=== PATIENT | female | born 1960 | race Caucasian/White ===

== ENCOUNTER 2018-01-06 23:04 | Observation (INO) ==
--- NOTE | 2018-01-06 23:55 | XR ---
EXAM DATE: 01/06/2018 11:45 PM EDT AGE/SEX: 57 years / Female INDICATIONS: . Shortness of breath, cough. CLINICAL DATA: This is the patient's initial encounter. Patient reports that signs and symptoms have been present for 2 days and indicates a pain score of 4/10. MEDICAL/SURGICAL HISTORY: None. None. COMPARISON: No prior exams available for comparison. FINDINGS: PA and lateral views of the chest demonstrate the lungs to be symmetrically hyper aerated without maria c dence of mass, infiltrate or effusion. The cardiomediastinal contours are unremarkable. Osseous struc tures are intact with a mild levoscoliosis of the mid dorsal spine. CONCLUSION: Hyperinflation with no acute cardiopulmonary process. Electronically signed by: Huber Chowdhury MD 01/06/2018 11:54 PM EDT
[2018-01-06 23:57] LABS: Baso # (Auto) 0.1 th/mm3 (0.0-0.2); Baso % (Auto) 0.8 % (0.0-2.0); Eos # (Auto) 0.2 th/mm3 (0.0-0.4); Eos % (Auto) 3.3 % (0.0-4.0); Hemoglobin 15.1 gm/dL (11.6-15.3); Lymph # (Auto) 1.3 th/mm3 (1.0-4.8); Lymph % (Auto) 20.6 % (9.0-44.0); Mean Corpuscular HGB Conc 34.3 % (32.0-36.0); Mean Corpuscular Hemoglobin 32.2 pg (27.0-34.0); Mean Corpuscular Volume 93.9 fL (80.0-100.0); Mean Platelet Volume 7.4 fL (7.0-11.0); Mono # (Auto) 0.6 th/mm3 (0.0-0.9); Mono % (Auto) 9.2 % (0.0-8.0); Neut # (Auto) 4.1 th/mm3 (1.8-7.7); Neut % (Auto) 66.1 % (16.0-70.0); Platelet Count 251 th/mm3 (150-450); Red Blood Count 4.69 mil/mm3 (4.00-5.30); Red Cell Distribution Width 13.9 % (11.6-17.2); White Blood Count 6.3 th/mm3 (4.0-11.0)
[2018-01-07 00:03] LABS: Chloride 104 meq/L (98-107); Potassium 4.3 meq/L (3.5-5.1); Sodium 137 meq/L (136-145)
[2018-01-07 00:06] LABS: Anion Gap 4 meq/L (5-15); Blood Urea Nitrogen 8 mg/dL (7-18); Calcium 8.8 mg/dL (8.5-10.1); Carbon Dioxide 28.8 meq/L (21.0-32.0); Glucose,Random 97 mg/dL (74-106)
[2018-01-07 00:09] LABS: Alanine Aminotransferase 31 U/L (10-53); Aspartate Aminotransferase 25 U/L (15-37)
[2018-01-07 00:10] LABS: Glomerular Filtration Rate Greater Than 89 mL/min (>89)
[2018-01-07 00:11] LABS: Total Protein 7.5 g/dL (6.4-8.2)
[2018-01-07 00:12] LABS: Alkaline Phosphatase 74 U/L (45-117)
[2018-01-07 00:17] LABS: Creatine Kinase 62 U/L (26-192)
[2018-01-07 00:56] LABS: Bilirubin,Urine Negative (Negative); Clarity,Urine Clear (Clear); Color,Urine Yellow (Yellw/Straw); Glucose,Urine (UA) Negative (Negative); Leukocyte Esterase,Urine Negative (Negative); Nitrite,Urine Negative (Negative); PH,Urine 5.5 (5.0-8.5); Urobilinogen,Urine 0.2 mg/dL (Less than 2)
[2018-01-07 01:05] LABS: Amphetamine Screen,Urine Neg (Neg); Barbiturate Screen,Urine Neg (Neg); Cannabinoid Screen,Urine Neg (Neg); Cocaine Screen,Urine Neg (Neg)
[2018-01-07 01:20] LABS: Opiate Screen,Urine Neg (Neg)
[2018-01-07 01:34] LABS: RBC,Urine 0-3 /hpf (0-3); Squamous Epithelial Cell,Urine 0-5 /hpf (0-5); WBC,Urine 0-5 /hpf (0-5)
[2018-01-07] MEDS ORDERED: Bisacodyl 10 MG Supp RECTAL PRN (02:04)
[2018-01-07] MEDS ORDERED: Temazepam 15 MG Capsule PO PRN (02:04)
[2018-01-07] MEDS ORDERED: Acetaminophen 325 MG Tablet PO PRN (02:04)
--- NOTE | 2018-01-07 02:35 | ED ---
HPI General Chief complaint: Respiratory Symptoms Stated complaint: cough/sob x2 days Time Seen by Provider: 01/06/18 23:14 History of Present Illness HPI narrative: 57-year-old female history of COPD here for evaluation of shortness of breath. Patient says she smokes about half a pack a day for 20+ years, started having shortness of breath and difficulty breathing, she can only walk half a block without getting short of breath. She denies any chest pain or sweating, she has no palpitations, no relation to physical activity. She does not use any inhalers at home, does not take any medications. Related Data Home Medications Medication Instructions Recorded Confirmed No Known Home Medications 01/06/18 01/06/18 Previous Rx's Medication Instructions Recorded azithromycin 500 mg PO DAILY #3 tab 01/09/18 ipratropium-albuterol 1 puff INHALATION QID #1 g 01/09/18 prednisone 20 mg PO BID #14 tab 01/09/18 Allergies Allergy/AdvReac Type Severity Reaction Status Date / Time No Known Allergies Allergy Unverified 01/06/18 23:32 Review of Systems Except as stated in HPI: all other systems reviewed are negative [facility] Medical History Medical History History of hysterectomy (Acute) Surgical History Surgical History H/O tubal ligation (Acute) History of appendectomy (Acute) Social History Social History Substance History: No History of Abuse Second Hand Smoke Exposure: No Smoking Status: Current every day smoker Tobacco Type: Cigarettes How Often Do You Have a Drink Containing Alcohol: Monthly or less Recent Travel in [facility] within the Last 8 Weeks: No Immunization History Tetanus Immunization: >5 Years Hx Influenza Vaccine This Season: No Exam Narrative Exam Narrative: GENERAL: Alert oriented 3 no acute distress. SKIN: Focused skin assessment warm/dry. HEAD: Atraumatic. Normocephalic. EYES: Pupils equal and round. No scleral icterus. No injection or drainage. ENT: No nasal bleeding or discharge. Mucous membranes pink and moist. NECK: Trachea midline. No JVD. CARDIOVASCULAR: Regular rate and rhythm. No murmur appreciated. RESPIRATORY: Mild expiratory wheezing bilaterally, no accessory muscle use. Breath sounds equal bilaterally. GASTROINTESTINAL: Abdomen soft, non-tender, nondistended. Hepatic and splenic margins not palpable. MUSCULOSKELETAL: No obvious deformities. No clubbing. No cyanosis. No edema. NEUROLOGICAL: Awake and alert. No obvious cranial nerve deficits. Motor grossly within normal limits. Normal speech. PSYCHIATRIC: Appropriate mood and affect; insight and judgment normal. Course Initial Documented Vital Signs Temperature 98.2 F 01/06/18 23:10 Pulse Rate 89 01/06/18 23:10 Respiratory Rate 22 01/06/18 23:10 Blood Pressure 203/86 H 01/06/18 23:10 Pulse Oximetry 92 L 01/06/18 23:10 Last Documented Vital Signs Temperature 97.6 F 01/09/18 12:00 Pulse Rate 66 01/09/18 14:19 Respiratory Rate 16 01/09/18 14:33 Blood Pressure 131/61 01/09/18 12:00 Pulse Oximetry 93 L 01/09/18 14:59 Medical Decision Making MDM Narrative Medical decision making narrative: 57-year-old female here for evaluation of shortness of breath. Patient is still hypoxic and will benefit from admission for COPD exacerbation with hypoxia. Lab Data Result diagrams: 01/08/18 05:29 01/08/18 05:29 Lab Results 01/06/18 01/06/18 01/06/18 Range/Units 23:40 23:40 23:40 CBC w Diff Auto diff final WBC 6.3 (4.0-11.0) th/mm3 RBC 4.69 (4.00-5.30) mil/mm3 Hgb 15.1 (11.6-15.3) gm/dL Hct 44.0 (35.0-46.0) % MCV 93.9 (80.0-100.0) fL MCH 32.2 (27.0-34.0) pg MCHC 34.3 (32.0-36.0) % RDW 13.9 (11.6-17.2) % Plt Count 251 (150-450) th/mm3 MPV 7.4 (7.0-11.0) fL Neut % (Auto) 66.1 (16.0-70.0) % Lymph % (Auto) 20.6 (9.0-44.0) % [place] % (Auto) 9.2 H (0.0-8.0) % Eos % (Auto) 3.3 (0.0-4.0) % Baso % (Auto) 0.8 (0.0-2.0) % Neut # (Auto) 4.1 (1.8-7.7) th/mm3 Lymph # (Auto) 1.3 (1.0-4.8) th/mm3 [place] # (Auto) 0.6 (0.0-0.9) th/mm3 Eos # (Auto) 0.2 (0.0-0.4) th/mm3 Baso # (Auto) 0.1 (0.0-0.2) th/mm3 WBC Differential . Differential Comment . D-Dimer Quant (PE/DVT) 0.39 (0.00-0.50) mg/L FEU Sodium 137 (136-145) meq/L Potassium 4.3 (3.5-5.1) meq/L Chloride 104 (98-107) meq/L Carbon Dioxide 28.8 (21.0-32.0) meq/L Anion Gap 4 L (5-15) meq/L BUN 8 (7-18) mg/dL Creatinine 0.58 (0.50-1.00) mg/dL Estimated GFR Greater than 89 (>89) mL/min Random Glucose 97 (74-106) mg/dL Calcium 8.8 (8.5-10.1) mg/dL Total Bilirubin 0.5 (0.2-1.0) mg/dL AST 25 (15-37) U/L ALT 31 (10-53) U/L Alkaline Phosphatase 74 (45-117) U/L Total Creatine Kinase 62 (26-192) U/L Troponin I Less than 0.02 L (0.02-0.05) ng/mL B-Natriuretic Peptide (0-100) pg/mL Total Protein 7.5 (6.4-8.2) g/dL Albumin 4.0 (3.4-5.0) g/dL Urine Color (Yellw/Straw) Urine Clarity (Clear) Urine pH (5.0-8.5) Ur Specific [place] (1.002-1.035) Urine Protein (Neg-Trace) mg/dL Urine Glucose (UA) (Negative) mg/dL Urine Ketones (Negative) mg/dL Urine Occult Blood (Negative) Urine Nitrate (Negative) Urine Bilirubin (Negative) Urine Urobilinogen (Less than 2) mg/dL Ur Leukocyte Esterase (Negative) Urine RBC (0-3) /hpf Urine WBC (0-5) /hpf Ur Squamous Epith Cells (0-5) /hpf Micro UA Comment Urine Culture Comments Urine Opiates Screen (Neg) Ur Barbiturates Screen (Neg) Ur Amphetamines Screen (Neg) U Benzodiazepines Scrn (Neg) Urine Cocaine Screen (Neg) U Cannabinoids Screen (Neg) 01/06/18 01/07/18 01/07/18 Range/Units 23:40 00:45 00:45 CBC w Diff WBC (4.0-11.0) th/mm3 RBC (4.00-5.30) mil/mm3 Hgb (11.6-15.3) gm/dL Hct (35.0-46.0) % MCV (80.0-100.0) fL MCH (27.0-34.0) pg MCHC (32.0-36.0) % RDW (11.6-17.2) % Plt Count (150-450) th/mm3 MPV (7.0-11.0) fL Neut % (Auto) (16.0-70.0) % Lymph % (Auto) (9.0-44.0) % [place] % (Auto) (0.0-8.0) % Eos % (Auto) (0.0-4.0) % Baso % (Auto) (0.0-2.0) % Neut # (Auto) (1.8-7.7) th/mm3 Lymph # (Auto) (1.0-4.8) th/mm3 [place] # (Auto) (0.0-0.9) th/mm3 Eos # (Auto) (0.0-0.4) th/mm3 Baso # (Auto) (0.0-0.2) th/mm3 WBC Differential Differential Comment D-Dimer Quant (PE/DVT) (0.00-0.50) mg/L FEU Sodium (136-145) meq/L Potassium (3.5-5.1) meq/L Chloride (98-107) meq/L Carbon Dioxide (21.0-32.0) meq/L Anion Gap (5-15) meq/L BUN (7-18) mg/dL Creatinine (0.50-1.00) mg/dL Estimated GFR (>89) mL/min Random Glucose (74-106) mg/dL Calcium (8.5-10.1) mg/dL Total Bilirubin (0.2-1.0) mg/dL AST (15-37) U/L ALT (10-53) U/L Alkaline Phosphatase (45-117) U/L Total Creatine Kinase (26-192) U/L Troponin I (0.02-0.05) ng/mL B-Natriuretic Peptide 33 (0-100) pg/mL Total Protein (6.4-8.2) g/dL Albumin (3.4-5.0) g/dL Urine Color Yellow (Yellw/Straw) Urine Clarity Clear (Clear) Urine pH 5.5 (5.0-8.5) Ur Specific [place] 1.010 (1.002-1.035) Urine Protein Negative (Neg-Trace) mg/dL Urine Glucose (UA) Negative (Negative) mg/dL Urine Ketones Negative (Negative) mg/dL Urine Occult Blood Negative (Negative) Urine Nitrate Negative (Negative) Urine Bilirubin Negative (Negative) Urine Urobilinogen 0.2 (Less than 2) mg/dL Ur Leukocyte Esterase Negative (Negative) Urine RBC 0-3 (0-3) /hpf Urine WBC 0-5 (0-5) /hpf Ur Squamous Epith Cells 0-5 (0-5) /hpf Micro UA Comment Culture not ind Urine Culture Comments Culture not ind Urine Opiates Screen Neg (Neg) Ur Barbiturates Screen Neg (Neg) Ur Amphetamines Screen Neg (Neg) U Benzodiazepines Scrn Neg (Neg) Urine Cocaine Screen Neg (Neg) U Cannabinoids Screen Neg (Neg) 01/08/18 01/08/18 Range/Units 05:29 05:29 CBC w Diff Auto diff final WBC 6.6 (4.0-11.0) th/mm3 RBC 4.18 (4.00-5.30) mil/mm3 Hgb 13.7 (11.6-15.3) gm/dL Hct 39.7 (35.0-46.0) % MCV 95.1 (80.0-100.0) fL MCH 32.7 (27.0-34.0) pg MCHC 34.4 (32.0-36.0) % RDW 12.9 (11.6-17.2) % Plt Count 216 (150-450) th/mm3 MPV 7.4 (7.0-11.0) fL Neut % (Auto) 87.3 H (16.0-70.0) % Lymph % (Auto) 7.1 L (9.0-44.0) % [place] % (Auto) 5.4 (0.0-8.0) % Eos % (Auto) 0.2 (0.0-4.0) % Baso % (Auto) 0.0 (0.0-2.0) % Neut # (Auto) 5.7 (1.8-7.7) th/mm3 Lymph # (Auto) 0.5 L (1.0-4.8) th/mm3 [place] # (Auto) 0.4 (0.0-0.9) th/mm3 Eos # (Auto) 0.0 (0.0-0.4) th/mm3 Baso # (Auto) 0.0 (0.0-0.2) th/mm3 WBC Differential . Differential Comment . D-Dimer Quant (PE/DVT) (0.00-0.50) mg/L FEU Sodium 139 (136-145) meq/L Potassium 3.7 (3.5-5.1) meq/L Chloride 103 (98-107) meq/L Carbon Dioxide 30.4 (21.0-32.0) meq/L Anion Gap 6 (5-15) meq/L BUN 14 (7-18) mg/dL Creatinine 0.50 (0.50-1.00) mg/dL Estimated GFR Greater than 89 (>89) mL/min Random Glucose 150 H (74-106) mg/dL Calcium 8.8 (8.5-10.1) mg/dL Total Bilirubin (0.2-1.0) mg/dL AST (15-37) U/L ALT (10-53) U/L Alkaline Phosphatase (45-117) U/L Total Creatine Kinase (26-192) U/L Troponin I (0.02-0.05) ng/mL B-Natriuretic Peptide (0-100) pg/mL Total Protein (6.4-8.2) g/dL Albumin (3.4-5.0) g/dL Urine Color (Yellw/Straw) Urine Clarity (Clear) Urine pH (5.0-8.5) Ur Specific [place] (1.002-1.035) Urine Protein (Neg-Trace) mg/dL Urine Glucose (UA) (Negative) mg/dL Urine Ketones (Negative) mg/dL Urine Occult Blood (Negative) Urine Nitrate (Negative) Urine Bilirubin (Negative) Urine Urobilinogen (Less than 2) mg/dL Ur Leukocyte Esterase (Negative) Urine RBC (0-3) /hpf Urine WBC (0-5) /hpf Ur Squamous Epith Cells (0-5) /hpf Micro UA Comment Urine Culture Comments Urine Opiates Screen (Neg) Ur Barbiturates Screen (Neg) Ur Amphetamines Screen (Neg) U Benzodiazepines Scrn (Neg) Urine Cocaine Screen (Neg) U Cannabinoids Screen (Neg) Imaging Data Radiologist's impression: Chest X-Ray 01/06/18 23:29 CONCLUSION: Hyperinflation with no acute cardiopulmonary process. Discharge Plan Discharge Disposition Patient Disposition: 30 Still Patient Discharge Condition Condition: Stable Discharge Order Discharge Orders: Discharge Order (Routine); Ordered 01/09/18 Ordered By: Adriana Wilkinson Discharge Details Diagnosis: COPD exacerbation Physicians Team ED Provider: Amrik Rivera Primary Care Provider: Primary Care Kaya Thomson Attending Provider: Adriana Wilkinson Discharge Interventions Interventions: ED Discharge Assessment Last Done: 01/07/18 07:26 Vital Signs Last Done: 01/07/18 06:56 Status ED Status: Left Department Discharge Information Discharge Date/Time: 01/07/18 16:50
[2018-01-07] MEDS: MethylPREDNISolone Sod Succinate Inj 125 MG/2 ML Vial IV.PUSH SCH ×3 (08:42→22:02)
[2018-01-07] MEDS: Senna/Docusate Sodium 8.6/50 MG Tablet PO SCH ×2 (11:54→22:01)
[2018-01-07] MEDS ORDERED: Acetaminophen 500 MG Tablet PO PRN (14:05)
--- NOTE | 2018-01-07 14:18 | P.HP ---
History of Present Illness Primary Care Physician: No Primary Care Physician History of Present Illness: 57-year-old female who reports no significant medical history presented to the ER with shortness of breath that began following a cough that started 2 days ago. Her shortness of breath worsened over 2 days and she began to have difficulty with breathing during ambulation. She came to the ER for evaluation of her cough. Chest x-ray revealed hyperinflation consistent with COPD. She did not know she had COPD so some time was spent educating patient about the condition. She is a current smoker and has smoked for over 20 years. Her cough leading up to this was productive of clear sputum, she denies fevers. Review of Systems Constitutional: Denies anorexia, Denies body ache(s), Denies chills, Denies daytime sleepiness, Denies excessive sweating, Denies fatigue, Denies fever(s), Denies headache(s), Denies increased appetite, Denies lack of energy, Denies malaise, Denies night sweats, Denies weakness, Denies weight gain, Denies weight loss, Denies other Eyes: Denies blind spots, Denies blurry vision, Denies bulging eyes, Denies change in vision, Denies double vision, Denies discharge, Denies dry eyes, Denies floaters, Denies irritation, Denies itchy eyes, Denies loss of vision, Denies pain, Denies requires corrective lenses, Denies sensitivity to light, Denies other Ears, Nose, Mouth, and Throat: Denies abnormal hearing, Denies bleeding gums, Denies bad breath, Denies change in voice, Denies dental pain, Denies difficulty swallowing, Denies dizziness, Denies dry mouth, Denies ear discharge , Denies ear pain, Denies facial pain, Denies headache(s), Denies hearing loss, Denies hoarseness, Denies lip swelling, Denies nosebleed, Denies mouth lesions, Denies mouth pain, Denies nasal congestion, Denies nasal discharge, Denies nasal obstruction, Denies nasal trauma, Denies neck lump, Denies neck pain, Denies nose pain, Denies pain with swallowing, Denies poor balance, Denies post nasal drip, Denies ringing in the ears, Denies sinus pain, Denies sinus pressure , Denies sore throat, Denies throat swelling, Denies tongue swelling, Denies other Cardiovascular: Denies chest pain, Denies chest pain at rest, Denies chest pain with activity, Denies excessive sweating, Denies fainting, Denies fast heart rate, Denies foot swelling, Denies generalized swelling, Denies irregular heart rhythm, Denies leg pain with activity, Denies leg sores, Denies leg swelling, Denies lightheadedness, Denies radiating jaw, neck or arm pain, Denies rapid, pounding, or irregular heartbeat, Denies shortness of breath, Denies shortness of breath with activity, Denies shortness of breath when lying down, Denies shortness of breath causing sudden awakening, Denies slow heart rate, Denies other Respiratory: Reports chest congestion, Reports cough, Reports excessive phlegm production, Reports shortness of breath, Reports shortness of breath with activity, Reports wheezing, Denies coughing up blood, Denies pain on inspiration , Denies pain with cough, Denies snoring, Denies stridor Gastrointestinal: Denies abdominal pain, Denies belching, Denies black, tarry stools, Denies bloating, Denies bright, red blood in stools, Denies change in bowel habits, Denies constant urge to pass stool, Denies change in stools, Denies coffee ground vomit, Denies constipation, Denies cramping, Denies difficulty swallowing, Denies excessive passing of gas, Denies feeling full early, Denies heartburn, Denies incontinent of stools, Denies loose stools, Denies nausea, Denies pain with swallowing, Denies vomiting, Denies vomiting blood, Denies other Genitourinary: Denies abnormal periods, Denies abnormal vaginal bleeding, Denies absent period, Denies bleeding between periods, Denies blood in urine, Denies difficulty starting urination, Denies difficulty urinating, Denies dribbling after urination, Denies frequent nighttime urination, Denies genital itching, Denies genital lesions, Denies heavy periods, Denies hot flashes, Denies light periods, Denies nipple discharge, Denies painful intercourse, Denies painful periods, Denies painful urination, Denies pelvic pain, Denies prolapse symptoms, Denies sexual problems, Denies side pain, Denies urinary incontinence, Denies urinary urgency, Denies vaginal discharge, Denies vaginal dryness, Denies vaginal odor, Denies vaginal itching, Denies other Skin/Breast: Denies acne, Denies bleeding lesions, Denies boil, Denies breast swelling, Denies breast skin changes, Denies breast pain, Denies breast lump, Denies change in breast shape, Denies change in hair, Denies change in skin color, Denies changing lesions, Denies dry skin, Denies excessive hair growth, Denies hair loss, Denies itching, Denies lesions, Denies nail changes, Denies new lesions, Denies nipple discharge, Denies non-healing lesions, Denies redness , Denies sensitivity to light, Denies rash, Denies skin pain, Denies skin ulcer , Denies sores, Denies stretch espino, Denies unusual bruising, Denies wounds, Denies yellowing of the skin, Denies other Neurologic: Denies abnormal hearing, Denies abnormal movements, Denies abnormal speech, Denies abnormal walking, Denies behavioral changes, Denies burning sensations, Denies confusion, Denies dizziness, Denies fainting, Denies frequent falls, Denies headache(s), Denies lack of coordination, Denies localized weakness, Denies loss of vision, Denies memory loss, Denies numbness, Denies other visual disturbances, Denies radiating pain, Denies restless legs, Denies convulsions, Denies seizure-like activity, Denies sensory deficit, Denies tingling, Denies tingling/numbness/burning sensations, Denies tremor(s), Denies unsteadiness, Denies weakness, Denies other Psychiatric: Denies abnormal sleep pattern, Denies anxiety, Denies behavioral changes, Denies change in appetite, Denies change in sex drive, Denies confusion , Denies depression, Denies difficulty concentrating, Denies hearing things others do not hear, Denies hopelessness, Denies irritability, Denies lack of enjoyment, Denies memory loss, Denies mood swings, Denies panic attacks, Denies paranoia, Denies seeing things others do not see, Denies sensing things others do not sense, Denies tactile hallucinations, Denies thoughts of hurting/killing others, Denies thoughts of hurting/killing yourself, Denies other Endocrine: Denies cold intolerance, Denies excessive sweating, Denies flushing, Denies heat intolerance, Denies increased hunger, Denies increased thirst, Denies increased urination, Denies rapid, pounding, or irregular heartbeat, Denies other PMFSH - History History Provided By: Patient - Medical History Medical History: Medical History (Last Updated 01/06/18 @ 23:30 by Leah Quiros RN) History of hysterectomy - Surgical History Surgical History: Surgical History (Last Updated 01/06/18 @ 23:30 by Leah Quiros RN) H/O tubal ligation History of appendectomy - Tobacco History Second Hand Smoke Exposure: No Tobacco Use In Past 30 Days: Yes Smoking Status: Current every day smoker Tobacco Type: Cigarettes - Alcohol History How Often Do You Have a Drink Containing Alcohol: Monthly or less - Substance Use History Substance History: No History of Abuse - Travel History Recent Travel in the [facility] Within the Last 8 Weeks: No - Immunization History Tetanus Immunization: >5 Years Hx Influenza Vaccine This Season: No Medications and Allergies Active Medications: Active Medications Acetaminophen (Tylenol) 650 mg PO Q4H PRN PRN Reason: Temp > 100.4 Acetaminophen (Tylenol) 500 mg PO Q6H PRN PRN Reason: HEADACHE Al Hydroxide/Mg Hydroxide (Milk Of Magnesia Liq) 30 ml PO Q12H PRN PRN Reason: Mild Constipation Albuterol (Duoneb Neb (Lea)) 1 ampul NEB Q4HR NEB LEA Last Admin: 01/07/18 11:30 Dose: 1 ampul Albuterol (Duoneb Neb (Prn)) 1 ampul NEB Q15M PRN PRN Reason: WHEEZING Azithromycin (Zithromax) 500 mg PO ONCE ONE Stop: 01/07/18 15:01 Bisacodyl (Dulcolax Supp) 10 mg RECTAL DAILY PRN PRN Reason: SEVERE CONSITIPATION Lactulose (Lactulose Liq) 30 ml PO DAILY PRN PRN Reason: SEVERE CONSITIPATION Methylprednisolone Sodium Succinate (Solumedrol Inj) 60 mg IV.PUSH Q6H LEA Last Admin: 01/07/18 08:42 Dose: 60 mg Ondansetron HCl (Zofran Inj) 4 mg IV.PUSH Q6H PRN PRN Reason: NAUSEA OR VOMITING Senna/Docusate Sodium (Una-Colace) 1 tab PO BID [facility] Last Admin: 01/07/18 11:54 Dose: Not Given Sennosides (Senokot) 17.2 mg PO Q12H PRN PRN Reason: Moderate Constipation Sodium Chloride (Ns Flush) 2 ml IV.FLUSH PRN PRN PRN Reason: FLUSH AFTER USING IV ACCESS Sodium Chloride (Ns Flush) 2 ml IV.FLUSH BID [facility] Last Admin: 01/07/18 08:41 Dose: 2 ml Temazepam (Restoril) 15 mg PO HS PRN PRN Reason: INSOMNIA Allergies Allergy/AdvReac Type Severity Reaction Status Date / Time No Known Allergies Allergy Unverified 01/06/18 23:32 Home Medications Medication Instructions Recorded Confirmed Type No Known Home Medications 01/06/18 01/06/18 History Exam Vital signs: Vital Signs 01/06/18 23:10 01/06/18 23:25 01/06/18 23:49 Temperature 98.2 F Pulse Rate 89 70 Respiratory Rate 22 18 Blood Pressure 203/86 H Pulse Oximetry 92 L 89 L 01/06/18 23:50 01/06/18 23:55 01/07/18 00:40 Temperature Pulse Rate 79 75 Respiratory Rate 20 20 Blood Pressure 148/86 H 155/75 H Pulse Oximetry 99 98 99 01/07/18 00:48 01/07/18 01:20 01/07/18 02:03 Temperature Pulse Rate 71 Respiratory Rate 20 Blood Pressure 146/86 H Pulse Oximetry 97 99 98 01/07/18 02:04 01/07/18 03:43 01/07/18 03:52 Temperature Pulse Rate 76 73 Respiratory Rate 18 20 Blood Pressure 143/74 H Pulse Oximetry 98 94 L 01/07/18 04:22 01/07/18 06:56 01/07/18 07:01 Temperature 98.5 F Pulse Rate 79 70 Respiratory Rate 20 18 16 Blood Pressure 140/65 103/58 L Pulse Oximetry 96 98 98 01/07/18 07:16 01/07/18 07:26 01/07/18 08:00 Temperature Pulse Rate 71 Respiratory Rate 16 16 Blood Pressure Pulse Oximetry 99 100 01/07/18 08:59 01/07/18 11:32 01/07/18 12:07 Temperature 97.4 F L 98.3 F Pulse Rate 79 72 71 Respiratory Rate 16 16 14 Blood Pressure 115/74 121/66 Pulse Oximetry 100 94 L 94 L Intake & Output 01/06/18 01/07/18 01/07/18 18:59 06:59 18:59 Weight 53.6 kg Narrative: GENERAL: Alert and oriented 3, no acute distress SKIN: Warm and dry. HEAD: Atraumatic. Normocephalic. EYES: Pupils equal and round. No scleral icterus. No injection or drainage. ENT: No nasal bleeding or discharge. Mucous membranes pink and moist. NECK: Trachea midline. No JVD. CARDIOVASCULAR: Regular rate and rhythm. RESPIRATORY: Delayed inspiratory sounds, scattered wheezing and congestion in bilateral lung peña. No crackles. GASTROINTESTINAL: Abdomen soft, non-tender, nondistended. Hepatic and splenic margins not palpable. MUSCULOSKELETAL: Extremities without clubbing, cyanosis, or edema. No obvious deformities. NEUROLOGICAL: Awake and alert. No obvious cranial nerve deficits. Motor grossly within normal limits. Five out of 5 muscle strength in the arms and legs. Normal speech. PSYCHIATRIC: Appropriate mood and affect; insight and judgment normal. Results - Labs CBC & Chem 7: 01/06/18 23:40 01/06/18 23:40 Labs: Laboratory Results - last 24 hr 01/06/18 01/06/18 01/06/18 23:40 23:40 23:40 CBC w Diff Auto diff final WBC 6.3 RBC 4.69 Hgb 15.1 Hct 44.0 MCV 93.9 MCH 32.2 MCHC 34.3 RDW 13.9 Plt Count 251 MPV 7.4 Neut % (Auto) 66.1 Lymph % (Auto) 20.6 [place] % (Auto) 9.2 H Eos % (Auto) 3.3 Baso % (Auto) 0.8 Neut # (Auto) 4.1 Lymph # (Auto) 1.3 [place] # (Auto) 0.6 Eos # (Auto) 0.2 Baso # (Auto) 0.1 WBC Differential . Differential Comment . D-Dimer Quant (PE/DVT) 0.39 Sodium 137 Potassium 4.3 Chloride 104 Carbon Dioxide 28.8 Anion Gap 4 L BUN 8 Creatinine 0.58 Estimated GFR Greater than 89 Random Glucose 97 Calcium 8.8 Total Bilirubin 0.5 AST 25 ALT 31 Alkaline Phosphatase 74 Total Creatine Kinase 62 Troponin I Less than 0.02 L B-Natriuretic Peptide Total Protein 7.5 Albumin 4.0 Urine Color Urine Clarity Urine pH Ur Specific [place] Urine Protein Urine Glucose (UA) Urine Ketones Urine Occult Blood Urine Nitrate Urine Bilirubin Urine Urobilinogen Ur Leukocyte Esterase Urine RBC Urine WBC Ur Squamous Epith Cells Micro UA Comment Urine Culture Comments Urine Opiates Screen Ur Barbiturates Screen Ur Amphetamines Screen U Benzodiazepines Scrn Urine Cocaine Screen U Cannabinoids Screen 01/06/18 01/07/18 01/07/18 23:40 00:45 00:45 CBC w Diff WBC RBC Hgb Hct MCV MCH MCHC RDW Plt Count MPV Neut % (Auto) Lymph % (Auto) [place] % (Auto) Eos % (Auto) Baso % (Auto) Neut # (Auto) Lymph # (Auto) [place] # (Auto) Eos # (Auto) Baso # (Auto) WBC Differential Differential Comment D-Dimer Quant (PE/DVT) Sodium Potassium Chloride Carbon Dioxide Anion Gap BUN Creatinine Estimated GFR Random Glucose Calcium Total Bilirubin AST ALT Alkaline Phosphatase Total Creatine Kinase Troponin I B-Natriuretic Peptide 33 Total Protein Albumin Urine Color Yellow Urine Clarity Clear Urine pH 5.5 Ur Specific [place] 1.010 Urine Protein Negative Urine Glucose (UA) Negative Urine Ketones Negative Urine Occult Blood Negative Urine Nitrate Negative Urine Bilirubin Negative Urine Urobilinogen 0.2 Ur Leukocyte Esterase Negative Urine RBC 0-3 Urine WBC 0-5 Ur Squamous Epith Cells 0-5 Micro UA Comment Culture not ind Urine Culture Comments Culture not ind Urine Opiates Screen Neg Ur Barbiturates Screen Neg Ur Amphetamines Screen Neg U Benzodiazepines Scrn Neg Urine Cocaine Screen Neg U Cannabinoids Screen Neg - Imaging Impressions Chest X-Ray 01/06/18 23:29 CONCLUSION: Hyperinflation with no acute cardiopulmonary process. Caprini VTE Risk Assessment Caprini VTE Risk Assessment: Moderate/High Risk (score >= 2) Caprini Risk Assessment Model: Point Value = 1 Point Value = 2 Point Value = 3 Point Value = 5 Age 41-60 Minor surgery BMI > 25 kg/m2 Swollen legs Varicose veins or History of unexplained or recurrent spontaneous Oral contraceptives or hormone replacement Sepsis (< 1 month) Serious lung disease, including pneumonia (< 1 month) Abnormal pulmonary function Acute myocardial infarction Congestive heart failure (< 1 month) History of inflammatory bowel disease Medical patient at bed rest Age 61-74 Arthroscopic surgery Major open surgery (> 45 min) Laparoscopic surgery (> 45 min) Malignancy Confined to bed (> 72 hours) Immobilizing plaster cast Central venous access Age >= 75 History of VTE Family history of VTE Factor V Leiden Prothrombin [id number] Lupus anticoagulant Anticardiolipin antibodies Elevated serum homocysteine Heparin-induced thrombocytopenia Other congenital or acquired thrombophilia Stroke (< 1 month) Elective arthroplasty Hip, pelvis, or leg fracture Acute spinal cord injury (< 1 month) Prophylaxis Regimen: Total Risk Factor Score Risk Level Prophylaxis Regimen 0-1 Low Early ambulation 2 Moderate Order ONE of the following: *Sequential Compression Device (SCD) *Heparin 5000 units SQ BID 3-4 Higher Order ONE of the following medications: *Heparin 5000 units SQ TID *Enoxaparin/Lovenox 40 mg SQ daily (WT < 150 kg, CrCl > 30 mL/min) *Enoxaparin/Lovenox 30 mg SQ daily (WT < 150 kg, CrCl > 10-29 mL/min) *Enoxaparin/Lovenox 30 mg SQ BID (WT < 150 kg, CrCl > 30 mL/min) AND/OR *Sequential Compression Device (SCD) 5 or more Highest Order ONE of the following medications: *Heparin 5000 units SQ TID (Preferred with Epidurals) *Enoxaparin/Lovenox 40 mg SQ daily (WT < 150 kg, CrCl > 30 mL/min) *Enoxaparin/Lovenox 30 mg SQ daily (WT < 150 kg, CrCl > 10-29 mL/min) *Enoxaparin/Lovenox 30 mg SQ BID (WT < 150 kg, CrCl > 30 mL/min) AND *Sequential Compression Device (SCD) Assessment and Plan - Plan COPD exacerbation Patient responded well to standard therapy, she has no therapy at home since this is a new diagnosis Underlying exacerbation seems to be a cough, viral versus bacterial Patient wants to go home today We will perform oxygen walk test to see if she is able to tolerate walking without oxygen In preparation for discharge will plan to give her prescription for albuterol inhaler, steroid taper, duo nebs Cough Productive of clear sputum, afebrile We will cover her broadly with azithromycin given that the cough was bad enough to cause her hospitalization DVT prophylaxis Patient is ambulatory Discharge planning Patient may be discharged on meds described above if she is able to pass an oxygen walk test
[2018-01-07] MEDS ORDERED: Azithromycin 250 MG Tablet PO ONE (15:00)
[2018-01-08] MEDS: MethylPREDNISolone Sod Succinate Inj 125 MG/2 ML Vial IV.PUSH SCH ×4 (03:35→21:37)
[2018-01-08 06:13] LABS: Eos % (Auto) 0.2 % (0.0-4.0); Hematocrit 39.7 % (35.0-46.0); Hemoglobin 13.7 gm/dL (11.6-15.3); Lymph # (Auto) 0.5 th/mm3 (1.0-4.8); Lymph % (Auto) 7.1 % (9.0-44.0); Mean Corpuscular HGB Conc 34.4 % (32.0-36.0); Mean Corpuscular Hemoglobin 32.7 pg (27.0-34.0); Mean Corpuscular Volume 95.1 fL (80.0-100.0); Mean Platelet Volume 7.4 fL (7.0-11.0); Mono # (Auto) 0.4 th/mm3 (0.0-0.9); Mono % (Auto) 5.4 % (0.0-8.0); Neut # (Auto) 5.7 th/mm3 (1.8-7.7); Neut % (Auto) 87.3 % (16.0-70.0); Platelet Count 216 th/mm3 (150-450); Red Blood Count 4.18 mil/mm3 (4.00-5.30); Red Cell Distribution Width 12.9 % (11.6-17.2); White Blood Count 6.6 th/mm3 (4.0-11.0)
[2018-01-08 06:23] LABS: Chloride 103 meq/L (98-107); Potassium 3.7 meq/L (3.5-5.1); Sodium 139 meq/L (136-145)
[2018-01-08 06:29] LABS: Calcium 8.8 mg/dL (8.5-10.1)
[2018-01-08 06:30] LABS: Anion Gap 6 meq/L (5-15); Blood Urea Nitrogen 14 mg/dL (7-18); Carbon Dioxide 30.4 meq/L (21.0-32.0); Glucose,Random 150 mg/dL (74-106)
[2018-01-08 06:33] LABS: Glomerular Filtration Rate Greater Than 89 mL/min (>89)
[2018-01-08] MEDS: Azithromycin 250 MG Tablet PO SCH (08:23)
[2018-01-08] MEDS: Senna/Docusate Sodium 8.6/50 MG Tablet PO SCH ×2 (08:27→21:36)
--- NOTE | 2018-01-08 15:31 | P.PN ---
Subjective Interval history: 57-year-old female states she has persistent cough, though she feels comfortable at rest on oxygen in bed. When the oxygen was removed her saturations dropped to 85%, but she remained asymptomatic. Physical Exam Vital signs: Vital Signs 01/07/18 15:30 01/07/18 15:49 01/07/18 16:00 Temperature 98.0 F Pulse Rate 78 Respiratory Rate 18 18 Blood Pressure 136/62 Pulse Oximetry 96 Pulse Oximetry [Exertion on Room Air] 85 L Pulse Oximetry [Exertion with Oxygen] 93 L Pulse Oximetry [Resting on Room Air] 89 L Pulse Oximetry [Resting with Oxygen] 01/07/18 19:16 01/07/18 20:00 01/07/18 23:40 Temperature 96.9 F L Pulse Rate 79 66 76 Respiratory Rate 16 16 16 Blood Pressure 129/66 Pulse Oximetry 94 L Pulse Oximetry [Exertion on Room Air] Pulse Oximetry [Exertion with Oxygen] Pulse Oximetry [Resting on Room Air] Pulse Oximetry [Resting with Oxygen] 01/08/18 00:00 01/08/18 03:39 01/08/18 07:27 Temperature 97.2 F L Pulse Rate 76 72 69 Respiratory Rate 16 16 18 Blood Pressure 135/64 Pulse Oximetry 95 Pulse Oximetry [Exertion on Room Air] Pulse Oximetry [Exertion with Oxygen] Pulse Oximetry [Resting on Room Air] Pulse Oximetry [Resting with Oxygen] 01/08/18 07:45 01/08/18 08:00 01/08/18 11:21 Temperature 96.8 F L Pulse Rate 65 71 Respiratory Rate 20 16 Blood Pressure 126/63 Pulse Oximetry 95 95 Pulse Oximetry [Exertion on Room Air] Pulse Oximetry [Exertion with Oxygen] Pulse Oximetry [Resting on Room Air] Pulse Oximetry [Resting with Oxygen] 01/08/18 11:35 01/08/18 12:00 Temperature 97.7 F Pulse Rate 76 Respiratory Rate 20 Blood Pressure 120/59 L Pulse Oximetry 91 L Pulse Oximetry [Exertion on Room Air] Pulse Oximetry [Exertion with Oxygen] Pulse Oximetry [Resting on Room Air] 85 L Pulse Oximetry [Resting with Oxygen] 94 L Intake & Output 01/07/18 01/08/18 01/08/18 18:59 06:59 18:59 Intake Total 800 / 800 Balance 800 / 800 Intake: Oral 800 / 800 Other: Date of Last Bowel Movement 01/07/18 Narrative: GENERAL: Alert and oriented 3, no acute distress, pleasant SKIN: Warm and dry. HEAD: Normocephalic. EYES: No scleral icterus. No injection or drainage. NECK: Supple, trachea midline. No JVD or lymphadenopathy. CARDIOVASCULAR: Regular rate and rhythm without murmurs, gallops, or rubs. RESPIRATORY: Delayed inspiratory sounds, scattered wheezing. No accessory muscle use. GASTROINTESTINAL: Abdomen soft, non-tender, nondistended. MUSCULOSKELETAL: No cyanosis, or edema. BACK: Nontender without obvious deformity. No CVA tenderness. Results - Labs CBC & Chem 7: 01/08/18 05:29 01/08/18 05:29 Laboratory Results - last 24 hr 01/08/18 01/08/18 05:29 05:29 CBC w Diff Auto diff final WBC 6.6 RBC 4.18 Hgb 13.7 Hct 39.7 MCV 95.1 MCH 32.7 MCHC 34.4 RDW 12.9 Plt Count 216 MPV 7.4 Neut % (Auto) 87.3 H Lymph % (Auto) 7.1 L [place] % (Auto) 5.4 Eos % (Auto) 0.2 Baso % (Auto) 0.0 Neut # (Auto) 5.7 Lymph # (Auto) 0.5 L [place] # (Auto) 0.4 Eos # (Auto) 0.0 Baso # (Auto) 0.0 WBC Differential . Differential Comment . Sodium 139 Potassium 3.7 Chloride 103 Carbon Dioxide 30.4 Anion Gap 6 BUN 14 Creatinine 0.50 Estimated GFR Greater than 89 Random Glucose 150 H Calcium 8.8 Assessment and Plan - Plan COPD exacerbation Patient responded well to standard therapy, she has no therapy at home since this is a new diagnosis Underlying exacerbation seems to be a cough, viral versus bacterial Patient failed a home oxygen walk test yesterday, failed again today before even getting up out of bed. When oxygen removed from her nose her pulse ox drops to 85%. Continue duo nebs every 4 hours scheduled Continue Solu-Medrol 60 mg 4 times daily Added budesonide nebulizer today Added Acapella and incentive spirometer devices today We will attempt home oxygen walk test again tomorrow Cough Productive of clear sputum, afebrile Continue with azithromycin, treat as bronchopneumonia DVT prophylaxis Patient is ambulatory Discharge planning Patient has failed to home oxygen walk tests
[2018-01-09] MEDS: MethylPREDNISolone Sod Succinate Inj 125 MG/2 ML Vial IV.PUSH SCH ×2 (03:01→09:04)
[2018-01-09] MEDS: Senna/Docusate Sodium 8.6/50 MG Tablet PO SCH (09:04)
[2018-01-09] MEDS: Azithromycin 250 MG Tablet PO SCH (09:04)
--- NOTE | 2018-01-09 12:40 | P.PNIM ---
Subjective Interval history: Patient seen in follow-up for COPD exacerbation, still somewhat hypoxemic. Incentive spirometry and Acapella use discussed with patient as well as plan for treatment. Patient feels much better. Physical Exam Vital signs: Vital Signs 01/08/18 16:00 01/08/18 19:33 01/08/18 20:00 Temperature 97.1 F L 96.4 F L Pulse Rate 71 70 70 Respiratory Rate 20 16 16 Blood Pressure 123/67 130/87 Pulse Oximetry 95 96 96 01/08/18 23:50 01/09/18 00:00 01/09/18 03:44 Temperature 97.4 F L Pulse Rate 76 77 76 Respiratory Rate 16 20 16 Blood Pressure 109/55 L Pulse Oximetry 97 01/09/18 08:08 Temperature 97.2 F L Pulse Rate 69 Respiratory Rate 19 Blood Pressure 135/73 Pulse Oximetry 95 Intake & Output 01/08/18 01/09/18 01/09/18 18:59 06:59 18:59 Intake Total 560 / 560 240 / 240 240 / 240 Balance 560 / 560 240 / 240 240 / 240 Weight 53.2 kg Intake: Oral 560 / 560 240 / 240 240 / 240 Other: # Voids 6 3 Date of Last Bowel Movement 01/07/18 01/08/18 # Bowel Movements 1 Narrative: GENERAL: Patient calm resting and without complaints SKIN: Warm and dry. No rashes or ecchymotic injuries EYES: Pupils equal and round. No scleral icterus. No injection or drainage. ENT: External ear exam normal. No acute nasal bleeding or discharge. Mucous membranes pink and moist. CARDIOVASCULAR: Regular rate and rhythm. No murmurs gallops or rubs appreciated RESPIRATORY: Good air flow and effort without accessory muscle use. Clear to auscultation. Breath sounds equal bilaterally. GASTROINTESTINAL: Abdomen soft, non-tender, nondistended. Hepatic and splenic margins not palpable. MUSCULOSKELETAL: Extremities without clubbing, cyanosis, or edema. No obvious deformities. NEUROLOGICAL: Awake and alert. No obvious cranial nerve deficits. Motor grossly within normal limits. Five out of 5 muscle strength in the arms and legs. Normal speech. Results - Labs CBC & Chem 7: 01/08/18 05:29 01/08/18 05:29 - Imaging Chest x-ray without acute cardiopulmonary disease on my review Assessment and Plan - Assessment (1) COPD exacerbation Code(s): J44.1 - Chronic obstructive pulmonary disease with (acute) exacerbation Status: Acute Plan: With acute hypoxemic respiratory failure secondary to COPD exacerbation/ bronchitis Continue with bronchodilators by nebulizer, steroids to taper, patient education on tobacco cessation Follow-up oxygenation needs for discharge planning Continue azithromycin for acute bronchitis - Plan Discharge Planning: Discharge home pending oxygen requirements, repeat walk test in a.m.
[2018-01-09] MEDS ORDERED: predniSONE 20 MG Tablet PO SCH (21:00)
== END 2018-01-09 16:57 | disposition home or self-care (01) ==
LOC: PHED 23:04 → PH3 23:04 → PHEDA 23:04 → PH3 01-07 07:34
PROVIDERS: ADMIT Hospitalist; ATTEND Hospitalist
DX: J44.0 Chronic obstructive pulmonary disease with (acute) lower respiratory infection; F17.210 Nicotine dependence, cigarettes, uncomplicated; J44.1 Chronic obstructive pulmonary disease with (acute) exacerbation; J18.0 Bronchopneumonia, unspecified organism; J20.9 Acute bronchitis, unspecified